=== PATIENT | female | born 2000 | race Caucasian/White ===

== ENCOUNTER 2022-07-06 07:18 | Emergency (ER) | payer BC ==
[~2022-07-06] VITALS: Ht 160 cm; Wt 65.8 kg
[2022-07-06 07:36] VITALS: BP_SYST 152
--- NOTE | 2022-07-06 07:41 | NUR ---
Patient to ER bed 8 to gown for evaluation. Side rails up. Report given to Gal BOLTON.
--- NOTE | 2022-07-06 07:42 | NUR ---
PT BIB SELF AWAKE AND ALERT AOX4, NO SOB OR DISTRESS. PT C/O HEAD ACHE X3 DAYS. PT STATES PAin to be 7/10. PT DENIES MEDICAL HX. PT DENIES N/V.
--- NOTE | 2022-07-06 07:44 | NUR ---
MD DR CAMPO AT BEDSIDE
[2022-07-06] MEDS ORDERED: KETOROLAC TROMETHAMINE 60 MG/2 ML VIAL IM ONE (07:45)
[2022-07-06] MEDS ORDERED: PROCHLORPERAZINE EDISYLATE 10 MG/2 ML VIAL IM ONE (07:45)
[2022-07-06] MEDS ORDERED: BACITRACIN 1 GM OINT TP ONE (08:25)
[2022-07-06] MEDS ORDERED: BUTA1CAP43 PO (09:35)
[2022-07-06 09:59] VITALS: BP_SYST 135
--- NOTE | 2022-07-06 10:01 | NUR ---
Patient given written and verbal discharge instructions and verbalizes understanding. ER MD DR CAMPO discussed with patient the results and treatment provided. Patient in stable condition. ID arm band removed. Rx of FIORICET given. Patient educated on pain management and to follow up with PMD. Pain Scale 2/10. Opportunity for questions provided and answered. Medication side effect fact sheet provided.
== END 2022-07-06 10:01 | disposition home or self-care (01) ==
LOC: SED 07:18
DX: G43.909 Migraine, unspecified, not intractable, without status migrainosus (principal); Z79.899 Other long term (current) drug therapy
CPT/HCPCS: 99284; 96372; J1885; J0780